=== PATIENT | female | born 1945 | race Caucasian/White ===

== ENCOUNTER 2021-04-12 10:30 | Outpatient (CLI) | payer MEDICARE, SELFPAY | END 2021-04-12 10:31 | disposition home or self-care (01) | LOC: CHSOUTPT 10:49 | PROVIDERS: PCP Family Medicine; Visit Provider Specialist | DX: C44.319 Basal cell carcinoma of skin of other parts of face (principal) | CPT/HCPCS: 88305 ==

== ENCOUNTER 2024-09-09 11:59 | Outpatient (CLI) | payer MEDICARE, SELFPAY ==
--- OUTSIDE RECORDS SUMMARY | 2024-09-09 12:26 | XMS_ITS ---
Author Organization Unknown Address [address] [place] [address] [phone] Phone Care Team Providers Care Glass Maker Name Role Phone BLAINE WETZEL Attending Unavailable GLORIA MCINTOSH Primary Unavailable Immunization Immunization Date Status Additional Notes Code Code System pneumococcal polysaccharide PPV23 02/13/2018 Completed 33 CVX Pneumococcal conjugate PCV 13 01/26/2016 Completed 133 CVX Influenza, high-dose, trivalent, PF 02/09/2015 Completed 135 CVX Influenza, high-dose, trivalent, PF 01/26/2016 Completed 135 CVX Influenza, high-dose, trivalent, PF 02/08/2017 Completed 135 CVX Influenza, high-dose, trivalent, PF 02/13/2018 Completed 135 CVX Influenza, high-dose, trivalent, PF 02/18/2019 Completed 135 CVX Influenza, high-dose, trivalent, PF 03/01/2024 Completed 135 CVX Influenza, split virus, trivalent, preservative 01/05/2014 Completed 141 CVX zoster recombinant 05/16/2018 Completed 187 CVX Influenza, high-dose, quadrivalent, PF 02/21/2020 Completed 197 CVX Influenza, high-dose, quadrivalent, PF 03/21/2021 Completed 197 CVX Influenza, high-dose, quadrivalent, PF 02/19/2022 Completed 197 CVX Influenza, high-dose, quadrivalent, PF 02/13/2023 Completed 197 CVX COVID-19, mRNA, LNP-S, PF, 1 00 mcg/0.5mL dose or 50 mcg/0.25mL dose 07/30/2020 Completed 207 CVX COVID-19, mRNA, LNP-S, PF, 1 00 mcg/0.5mL dose or 50 mcg/0.25mL dose 10/01/2020 Completed 207 CVX Results US KIDNEY AND BLADDER - Comp leted: 05/29/2024 13:15 LOINC: \TM00\12PI\DRAo\BM09\ \MRLo\ [facility] [address] [place] [address] ---------NAME--------- NUMBER SEX AGE ADMIT DISC. XRAY# F/C TYPE CYNTHIA KRISTIAN GOMEZ [id number] F [id number] 05/29/24 05/29/24 [id number] MB3 O/P DATE OF : 1945 M/R# [id number] PH#: [phone] \MRx\ LOCATION: TRANSCRIBED: 05/29/24 13:23 [facility] K[facility] BLADDER [id number] COMPLETED:05/29/24 13:15 APC [id number] {REASON-US KID/BLADDR renal stone PHYSICIAN: BLAINE ALYSA R A D I O L O G Y R E P O R T RENAL ULTRASOUND CLINICAL HISTORY: REASON-US KID/BLADDR renal stone TECHNIQUE: Multiple ultrasound images of the kidneys and bladder were obtained. COMPARISON: None FINDINGS: The right kidney measures 9.4 cm in length. The left kidney measures 10.2 cm. There is a 2.4 x 2.3 cm calculus with acoustic shadowing in the left renal pelvis. There is no right renal nephrolithiasis. There is no hydronephrosis. There is a 0.9 cm right renal cyst. The bladder appears within normal limits with prevoid volume measuring 116 cc. The postvoid residual is 83 cc. IMPRESSION: 1. 2.4 cm calculus in the left renal pelvis. There is no evidence of hydronephrosis. HS:Y NESS INFORMATION ANALYST \ITLo\ \UNDo\ \UNDx\ \ITLx\ Reviewed and Electronically Signed by: Joseph Pascal MD Signed Date: 05/29/24 13:23 05/29/24.1325.APC.to GLORIA PENA via modem Social History Type Status Start Date End Date Code Code Syst em Smoking History Never smoker (Never Smoked) [id number] SNOMED CT Smoking History Unknown if ever smoked [address] Sex Female Medications Medication Start Date End Date Route Frequency Dose Code Code System Medication Instructions Home Meds PreserVision Areds Oral Capsule, Liquid Filled 01/02/2020 Unknown ORAL DIRECTED 1 unit(s) 958173 RxNorm TAKE 1 EACH ORAL DIRECTED Verapamil HCl 240MG Oral Tablet, Extended Release 01/02/2020 Unknown ORAL ONCE A DAY 240 MILLIGRAMS 039073 RxNorm TAKE 240 MILLIGRAMS ORAL ONCE A DAY hydroCHLOROthiaz ginny 25MG Oral Tablet 01/02/2020 Unknown ORAL ONCE A DAY 25 MILLIGRAMS 892632 RxNorm TAKE 25 MILLIGRAMS ORAL ONCE A DAY VITAMIN D3 01/02/2020 Unknown ORAL ONCE A DAY 1 TABLET RxNorm TAKE 1 TABLET ORAL ONCE A DAY Hospital Discharge Instructions Should you have any questions prior to discharge, please contact a member of your healthcare team. If you have left the hospital and have any questions, please contact your primary care physician. Reason For Referral No Data Found Allergies and Adverse Reactions Allergy Substance Reaction Severity Start Date Concern Status Co de Code System No Known Drug Allergies Active 610131873 SNOMED-CT Plan of Treatment Digital Tony Screen Bilateral (44496) Digital Tony Screen Bilateral (80298) US Kidney & Bladder (07182) 05/29/2024 Encounters Encounter Diagnosis Start Date Code Code Sys tem Kidney stone 05/29/2024 [id number] SNOMED-CT Personal Care Team Section Performer Name Performer Role Active Date Inactive Musa morales Tony Mott PCP - Primary care physician 2021-10-14 Imaging Narrative Notes [facility] 05/29/2024 13:[address] [address] ---------NAME--------- NUMBER SEX AGE ADMIT DISC. XRAY# F/C TYPE CYNTHIA GOMEZ [id number] F 79 05/29/24 05/29/24 [id number] MB3 O/P DATE OF : 1945 M/R# [id number] #: [id number] LOCATION: TRANSCRIBED: 05/29/24 13:23 US KIDNEY AND BLADDER [id number] COMPLETED:05/29/24 13:15 APC [id number] {REASON-US KID/BLADDR renal stone PHYSICIAN: BLAINE ALYSA RADIOLOGY REPORT RENAL ULTRASOUND CLINICAL HISTORY: REASON-US KID/BLADDR renal stone TECHNIQUE: Multiple ultrasound images of the kidneys and bladder were obtained. COMPARISON: None FINDINGS: The right kidney measures 9.4 cm in length. The left kidney measures 10.2 cm. There is a 2.4 x 2.3 cm calculus with acoustic shadowing in the left renal pelvis. There is no right renal nephrolithiasis. There is no hydronephrosis. There is a 0.9 cm right renal cyst. The bladder appears within normal limits with prevoid volume measuring 116 cc. The postvoid residual is 83 cc. IMPRESSION: 1. 2.4 cm calculus in the left renal pelvis. There is no evidence of hydronephrosis. HS:Y NESS INFORMATION ANALYST Reviewed and Electronically Signed by: Joseph Pascal MD Signed Date: 05/29/24 13:23 05/29/24.1325.APC.to GLORIA PENA via mode
--- OUTSIDE RECORDS SUMMARY | 2024-09-09 12:26 | XMS_ITS ---
Author Organization Unknown Address [address] [place] [phone] Phone Care Team Providers Care Scheduling Representative Name Role Phone YOSELIN WHITEHEAD Attending Unavailable GLORIA MCINTOSH Primary Unavailable Immunization [...] 50 mcg/0.25mL dose 10/01/2020 Completed 207 CVX Social History Type Status Start Date End Date Code Code Syst em Smoking History Never smoker (Never Smoked) 323964292 SNOMED CT Smoking History Unknown if ever smoked [address] Sex Female Medications Medication Start Date End Date Route Frequency Dose Code Code System Medication Instructions Home Meds PreserVision Areds Oral Capsule, Liquid Filled 01/02/2020 Unknown ORAL DIRECTED 1 unit(s) 222763 RxNorm TAKE 1 EACH ORAL DIRECTED Verapamil HCl 240MG Oral Tablet, Extended Release 01/02/2020 Unknown ORAL ONCE A DAY 240 MILLIGRAMS 994084 RxNorm TAKE 240 MILLIGRAMS ORAL ONCE A DAY hydroCHLOROthiaz ginny 25MG Oral Tablet 01/02/2020 Unknown ORAL ONCE A DAY 25 MILLIGRAMS 869792 RxNorm TAKE 25 MILLIGRAMS ORAL ONCE A [...] Code System No Known Drug Allergies Active 355477672 SNOMED-CT Plan of Treatment Digital Tony Screen Bilateral (60361) Digital Tony Screen Bilateral (95802) Kidney & Bladder (35325) 05/29/2024 Encounters Encounter Diagnosis Start Date Code Code Sys tem Frequency of micturition 07/17/2023 SNO MED-CT Personal Care Team Section Performer Name Performer Role Active Date Inactive Musa Kohler PCP - Primary care physician 2021-10-14
--- OUTSIDE RECORDS SUMMARY | 2024-09-09 12:26 | XMS_ITS | Clinical Summary ---
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
--- OUTSIDE RECORDS SUMMARY | 2024-09-09 12:26 | XMS_ITS ---
Author Organization Unknown Address [address] [place] [address] [phone] Phone Care Team Providers Care Mud Boss Name Role Phone FELIBERTO Mckeon Attending Unavailable GLORIA MCINTOSH Primary Unavailable Immunization [...] em Smoking History Never smoker (Never Smoked) 391990512 SNOMED CT Smoking History Unknown if ever smoked [address] Sex Female Medications Medication Start Date End Date Route Frequency Dose Code Code System Medication Instructions Home Meds PreserVision Areds Oral Capsule, Liquid Filled 01/02/2020 Unknown ORAL DIRECTED 1 unit(s) 553413 RxNorm TAKE 1 EACH ORAL DIRECTED Verapamil HCl 240MG Oral Tablet, Extended Release 01/02/2020 Unknown ORAL ONCE A DAY 240 MILLIGRAMS 187268 RxNorm TAKE 240 MILLIGRAMS ORAL ONCE A DAY hydroCHLOROthiaz ginny 25MG Oral Tablet 01/02/2020 Unknown ORAL ONCE A DAY 25 MILLIGRAMS 827250 RxNorm TAKE 25 MILLIGRAMS ORAL ONCE A [...] Code System No Known Drug Allergies Active 178404047 SNOMED-CT Plan of Treatment Digital Tony Screen Bilateral (21420) Digital Tony Screen Bilateral (00856) Kidney & Bladder (50477) 05/29/2024 Encounters Encounter Diagnosis Start Date Code Code Sys tem Dysuria 04/06/2024 SNOMED-CT Personal Care Team Section Performer Name Performer Role Active Date Inactive Musa Kohler PCP - Primary care physician 2021-10-14
--- OUTSIDE RECORDS SUMMARY | 2024-09-09 12:26 | XMS_ITS ---
Author Organization Unknown Address [address] [place] [address] [phone] Phone Care Team Providers Care Computer Programmer Analyst Name Role Phone BALBIR LYN Attending Unavailable GLORIA MCINTOSH Primary Unavailable Immunization [...] mcg/0.25mL dose 10/01/2020 Completed 207 CVX Results LIPID PANEL - Collect Date/T delores: 04/16/2024 08:44 [facility] ID: [id number] [place], [place], [id number] LOINC: 03083-8 Test Value Unit Reference Range Code Code System Flag FASTING YES CHOLESTEROL 278 mg/dL L=0 H=200 2092-3 LOINC H TRIGLYCERIDE 146 mg/dL L=0 H=150 2570-8 LOINC HDL 108 mg/dL L=40 H=60 2084-9 LOINC H LDL 113 mg/dL 2088-1 LOINC URINALYSIS w/Microscopy - Co llect Date/Time: 04/16/2024 08:44 [facility] ID: [id number] [place], [place], [phone] LOINC: 62568-4 Test Value Unit Reference Range Code Code System Flag UR SOURCE VOIDED 68360-1 LOINC COLOR YELLOW YELLOW 5778-6 LOINC CLARITY CLOUDY CLEAR 42206-3 LOINC SPEC GRAVITY >=1.030 1.000-1.030 5811-5 LOINC A PH 6.0 5.0 - 6.5 5803-2 LOINC LEUK EST 1+ NEGATIVE 5799-2 LOINC A NITRATE NEGATIVE NEGATIVE PROTEIN 2+ NEGATIVE 5804-0 LOINC A GLUCOSE NEGATIVE NEGATIVE 22831-6 LOINC KETONES NEGATIVE NEGATIVE 65231-6 LOINC UROBILINOGEN 0.2 0.2 - 1.0 5818-0 LOINC BILIRUBIN NEGATIVE NEGATIVE 50070-1 LOINC BLOOD 3+ NEGATIVE 91438-7 LOINC WBC 10-20 0 - 2 47031-8 LOINC A RBC 10-20 0 - 2 24138-9 LOINC A EPITHELIAL RARE RARE-FEW 01957-9 LOINC BACTERIA FEW NONE SEEN 53697-3 LOINC MUCUS NONE SEEN NONE SEEN 8247-9 LOINC YEAST NOT PRESE NOT PRESENT 90068-5 LOINC CASTS NONE SEEN 80499-6 LOINC CRYSTALS SEE BELOW 50102-6 LOINC TSH / REFLEX FT4 - Collect D ate/Time: 04/16/2024 08:44 [facility] ID: [id number] [address] [place], [place], [id number] LOINC: Test Value Unit Reference Range Code Code System Flag TSH 3.560 uIU/L L=0.470 H=4.680 74464-0 LOINC CBC W/ DIFF - Collect Date/T delores: 04/16/2024 08:44 [facility] ID: [id number] [address] [place], [place], [id number] LOINC: 57422-3 Test Value Unit Reference Range Code Code System Flag WBC 4.8 10^3uL L=4.8 H=10.8 RBC 4.84 10^6uL L=4.20 H=5.40 HEMOGLOBIN 14.8 g/dL L=12.0 H=16.0 718-7 LOINC HEMATOCRIT 45.9 VOL% L=37.0 H=47.0 4544-3 LOINC MCV 94.8 fL L=81.0 H=99.0 MCH 30.6 pg L=27.0 H=32.0 MCHC 32.2 g/dL L=32.0 H=36.0 PLATELETS 282 10^3uL L=100 H=400 12336-4 LOINC RDW 13.0 % L=11.7 H=15.5 %GRAN 54.4 % L=40.0 H=70.0 82617-1 LOINC %LYMPH 33.5 % L=20.0 H=45.0 736-9 LOINC %MONO 8.8 % L=2.0 H=10.0 59561-9 LOINC %EOS 2.9 % L=0.0 H=6.0 713-8 LOINC %BASO 0.4 % L=0.0 H=3.0 706-2 LOINC #NEUT 2.6 10^3uL L=1.9 H=7.6 97031-6 LOINC #LYMPH 1.6 10^3uL L=0.9 H=4.9 49355-2 LOINC #MONO 0.4 10^3uL L=0.1 H=0.9 27924-9 LOINC #EOS 0.1 10^3uL L=0.0 H=0.6 712-0 LOINC #BASO 0.02 10^3uL L=0.00 H=0.10 47076-7 LOINC #IM GRANS 0.0 10^3uL L=0.0 H=7.0 40330-9 LOINC %IM GRANS 0.0 % L=0.0 H=5.0 16163-6 LOINC %NRB 0.0 L=0.0 H=0.2 62986-7 LOINC #NRB 0.000 L=0.000 H=0.012 63339-1 LOINC MANUAL DIFF NOT INDICATED RBC MORPH NOT INDICATED COMPREHENSIVE METABOLIC PANE L - Collect Date/Time: 04/16/2024 08:44 [facility] ID: [id number] [address] [place], [place], [id number] LOINC: 10541-3 Test Value Unit Reference Range Code Code System Flag FASTING YES BUN 25 mg/dL L=7 H=20 3094-0 LOINC H CREATININE 0.80 mg/dL L=0.52 H=1.04 2160-0 LOINC GLUCOSE 80 mg/dL L=74 H=106 2345-7 LOINC SODIUM 141 mmol/L L=132 H=144 2951-2 LOINC POTASSIUM 4.2 mmol/L L=3.5 H=5.1 2823-3 LOINC CHLORIDE 102 mmol/L L=98 H=107 2075-0 LOINC CO2 31.0 mmol/L L=22.0 H=30.0 2028-9 LOINC H ANION GAP 12 L=10 H=20 55330-8 LOINC OSMOLALITY 295 mOs/kG L=280 H=296 66836-6 LOINC BUN/CREAT 31.3 3097-3 LOINC CALCIUM 9.7 mg/dL L=8.3 H=10.5 23525-9 LOINC AST 24 U/L L=15 H=46 1920-8 LOINC ALT 15 U/L L=9 H=72 1742-6 LOINC ALKALINE PHOS 100 U/L L=38 H=126 6768-6 LOINC TOTAL BILI 0.5 mg/dL L=0.2 H=1.3 1975-2 LOINC ALBUMIN 4.4 G/dL L=3.5 H=5.0 1751-7 LOINC TOTAL PROTEIN 6.8 g/L L=6.3 H=8.2 2885-2 LOINC A/G RATIO 1.8 46554-1 LOINC AGE 79 92020-4 LOINC eGFR NON-AFR 74 ml/min eGFR AFR AMER 90 ml/min Social History Type Status Start Date End Date Code Code Syst em Smoking History Never smoker (Never Smoked) 452291547 SNOMED CT Smoking History Unknown if ever smoked [address] Sex Female Medications Medication Start Date End Date Route Frequency Dose Code Code System Medication Instructions Home Meds PreserVision Areds Oral Capsule, Liquid Filled 01/02/2020 Unknown ORAL DIRECTED 1 unit(s) 532025 RxNorm TAKE 1 EACH ORAL DIRECTED Verapamil HCl 240MG Oral Tablet, Extended Release 01/02/2020 Unknown ORAL ONCE A DAY 240 MILLIGRAMS 294271 RxNorm TAKE 240 MILLIGRAMS ORAL ONCE A DAY hydroCHLOROthiaz ginny 25MG Oral Tablet 01/02/2020 Unknown ORAL ONCE A DAY 25 MILLIGRAMS 843397 RxNorm TAKE 25 MILLIGRAMS ORAL ONCE A [...] Code System No Known Drug Allergies Active 540439437 SNOMED-CT Plan of Treatment Digital Tony Screen Bilateral (84127) Digital Tony Screen Bilateral (39678) Kidney & Bladder (69362) 05/29/2024 Encounters Encounter Diagnosis Start Date Code Code Sys tem Mixed hyperlipidemia 04/16/2024 SNOMED- CT Personal Care Team Section Performer Name Performer Role Active Date Inactive Musa Kohler PCP - Primary care physician 2021-10-14
--- OUTSIDE RECORDS SUMMARY | 2024-09-09 12:26 | XMS_ITS ---
Author Organization Unknown Address [address] [place] [phone] Phone Care Team Providers Care Distribution Sales Representative Name Role Phone BLAINE WETZEL Attending Unavailable [...] em Smoking History Never smoker (Never Smoked) 363505701 SNOMED CT Smoking History Unknown if ever smoked [address] Sex Female Medications Medication Start Date End Date Route Frequency Dose Code Code System Medication Instructions Home Meds PreserVision Areds Oral Capsule, Liquid Filled 01/02/2020 Unknown ORAL DIRECTED 1 unit(s) 763851 RxNorm TAKE 1 EACH ORAL DIRECTED Verapamil HCl 240MG Oral Tablet, Extended Release 01/02/2020 Unknown ORAL ONCE A DAY 240 MILLIGRAMS 644053 RxNorm TAKE 240 MILLIGRAMS ORAL ONCE A DAY hydroCHLOROthiaz ginny 25MG Oral Tablet 01/02/2020 Unknown ORAL ONCE A DAY 25 MILLIGRAMS 460115 RxNorm TAKE 25 MILLIGRAMS ORAL ONCE A [...] Code System No Known Drug Allergies Active 987523666 SNOMED-CT Plan of Treatment Digital Tony Screen Bilateral (53423) Digital Tony Screen Bilateral (03228) Kidney & Bladder (46566) 05/29/2024 Encounters Encounter Diagnosis Start Date Code Code Sys tem Dysuria 04/18/2024 SNOMED-CT Personal Care Team Section Performer Name Performer Role Active Date Inactive Musa Kohler PCP - Primary care physician 2021-10-14
--- OUTSIDE RECORDS SUMMARY | 2024-09-09 12:26 | XMS_ITS | Clinical Summary ---
Author Organization [facility] Address [address] [place] [id number] Care Team Providers Care Fuel Buyer Name Role Phone Scott English MD Primary Care Provider [phone] Allergies No known active allergies Medications verapamil 240 MG ER tabletIndicatio ns:Hypertension Take 240 mg by mouth daily. Indications: High Blood Pressure Disorder Active hydroCHLOROthia zide 25 MG tabletIndicatio ns:Diuretic Therapy,Hyperte nsion,after lunch Take 25 mg by mouth every morning. Indications: Treatment with Diuretic Therapy, High Blood Pressure Disorder, after lunch Active vitamin D3, cholecalciferol , 1000 UNIT Tab tabletIndicatio ns:supplement Take 1,000 Units by mouth daily. Indications: supplement Active ibuprofen 200 MG tablet Take 400 mg by mouth every 6 (six) hours as needed for Pain. Active Multiple Vitamins-Minera ls (PRESERVISION AREDS 2 OR)Indications: supplement Take 1 capsule by mouth 2 (two) times a day. Indications: supplement Active phentermine 37.5 MG tabletIndicatio ns:aware cannot have for 2 weeks before surgery Take 37.5 mg by mouth daily. Indications: aware cannot have for 2 weeks before surgery Weight loss;last dose 02/2020 0 Active Active Problems No known active problems Family History Medical History Relation Comments [place] Father Aneurysm Mother Relation Status Comments Father Mother Social History Tobacco Use Types Packs/Day Years Used Date Smoking Tobacco: Former Cigarettes 1 962 - 1962 Smokeless Tobacco: Never Comments:smoked less than 1 year Alcohol Use Standard Drinks/Week Comments Yes 0 (1 standard drink = 0.6 oz pur e alcohol) socially Comments Unknown Sex and Gender Information Value Date Recorded Sex Assigned at Not on file Legal Sex Female 10:08 PM MANAGER LIGHTING Gender Identity Not on file Sexual Orientation Not on file Last Filed Vital Signs Vital Sign Reading Time Taken Comments Blood Pressure 129/70 05/03/2020 1:15 PM MANAGER LIGHTING Pulse 53 05/03/2020 1:00 PM MANAGER LIGHTING Temperature 36.2 C (97.1 F) 05/03/2020 11:44 AM MANAGER LIGHTING Respiratory Rate 16 05/03/2020 1:15 PM MANAGER LIGHTING Oxygen Saturation 94% 05/03/2020 1:00 PM MANAGER LIGHTING Inhaled Oxygen Concentration - - Weight 87.5 kg (193 lb) 04/23/2020 9:31 AM MANAGER LIGHTING Height 170.2 cm (5' 7 ) 04/23/2020 9:31 AM MANAGER LIGHTING Body Mass Index 30.23 04/23/2020 9:31 AM MANAGER LIGHTING Plan of Treatment Health Maintenance Due Date Last Done Comments Hepatitis C 1963 DTaP, Tdap and Td Vaccines ( 1 - Tdap) 02/11/1964 Annual Medicare Wellness Visit 2010 Dexa Scan (General) 2010 Pneumococcal Vaccine: 50+ Ye ars (2 of 2 - PPSV23) 01/25/2017 01/26/2016 Zoster Vaccines (2 of 2) 07/11/2018 05/16/2018 RSV Immunization or 60+ Years (1 - 1-dose 75+ series) 02/11/2020 COVID-19 Vaccine ( - 2023-2 5 season) 2024 Meningococcal B Vaccine Aged Out No l onger eligible based on patient's age to complete this topic Meningococcal Vaccine Aged Out No kaleigh akil eligible based on patient's age to complete this topic RSV Immunizations Under 20 Months Aged Out No longer eligible based on patient's age to complete this topic Medical Devices Implanted Type Area Typewriter Operator Automatic Device Identifier Shelf Expiration Date Model / Serial / Lot [employer] Soft [employer] 1.45 Short Rigid W/ Drill Bit [employer] - [id number] Implanted:Qty: 1 on 05/03/2020 by Jules Mcintyre DPM at [facility] [employer] Right: [employer] [id number] 11/24/2023 [id number] / / [id number] Knee Components Knee Components Description:Left knee Lens Lens Description:Bilateral eyes Insurance [employer] [facility] Advance Directives * Full Code (Latest Code Status on File) Date Activated Date Inactivated Comments 05/03/2020 11:56 AM 05/03/2020 3:16 PM Care Teams Fuel Buyer Relationship Specialty Start Date End Date Scott English MD PCP - General FAMILY PRACTICE 05/20/19
--- OUTSIDE RECORDS SUMMARY | 2024-09-09 12:27 | XMS_ITS ---
Author Organization Unknown Address [address] [place] [phone] Phone Care Team Providers Care Slurry Plant Operator Name Role Phone GLORIA MCINTOSH Attending Unavailable Immunization Immunization Date Status Additional Notes [...] mcg/0.25mL dose 10/01/2020 Completed 207 CVX Results DIG 3D TONY SCREENING BILATER AL - Completed: 11/29/2023 16:26 LOINC: See Scanned Image Attachment for Report Dictated By: Trans Initials: BG Trans Date: 11/30/23 15:23 <<REPDIST>> Social History Type Status Start Date End Date Code Code Syst em Smoking History Never smoker (Never Smoked) 893608671 SNOMED CT Smoking History Unknown if ever smoked [address] Sex Female Medications Medication Start Date End Date Route Frequency Dose Code Code System Medication Instructions Home Meds PreserVision Areds Oral Capsule, Liquid Filled 01/02/2020 Unknown ORAL DIRECTED 1 unit(s) 997098 RxNorm TAKE 1 EACH ORAL DIRECTED Verapamil HCl 240MG Oral Tablet, Extended Release 01/02/2020 Unknown ORAL ONCE A DAY 240 MILLIGRAMS 686564 RxNorm TAKE 240 MILLIGRAMS ORAL ONCE A DAY hydroCHLOROthiaz ginny 25MG Oral Tablet 01/02/2020 Unknown ORAL ONCE A DAY 25 MILLIGRAMS 605274 RxNorm TAKE 25 MILLIGRAMS ORAL ONCE A [...] Code System No Known Drug Allergies Active 652657541 SNOMED-CT Plan of Treatment Digital Tony Screen Bilateral (29577) Digital Tony Screen Bilateral (66091) Kidney & Bladder (42337) 05/29/2024 Encounters Encounter Diagnosis Start Date Code Code Sys tem Screening mammography 11/29/2023 79504456 SNOMED -CT Personal Care Team Section Performer Name Performer Role Active Date Inactive Musa Kohler PCP - Primary care physician 2021-10-14 Imaging Narrative Notes [facility] 11/30/2023 15:23 [place] [phone] [place], [place] [address] RADIOLOGY REPORT Patient Number: [id number] Patient Name: CYNTHIA GOMEZ Type: O/P MR Number: [id number] : 1945 Age: 78 Sex: F Room #: Admit Date: 11/29/23 Discharge Date 11/29/23 Ordering Physician: GLORIA MCINTOSH Family Physician: GLORIA PENA Second Physician: X-Ray Number : [id number] DIG 3D TONY SCREENING BILATERA 81598 COMPLETE:11/29/23 16:26 [id number] (REASONS-DIG 3D TONY SCREENING BILATERAL: R See Scanned Image Attachment for Report Dictated By: Darrin Initials: Trans Date: 11/30/23 15:23 <<REPDIST>>
--- OUTSIDE RECORDS SUMMARY | 2024-09-09 12:27 | XMS_ITS ---
Author Organization Unknown Address [address] [place] [address] [phone] Phone Care Team Providers Care Volunteer Specialist Name Role Phone BALBIR LYN Attending Unavailable [...] mcg/0.25mL dose 10/01/2020 Completed 207 CVX Results COMPREHENSIVE METABOLIC PANE L - Collect Date/Time: 10/18/2023 08:13 [facility] ID: [id number] [address] [place], [place], [id number] LOINC: 45400-7 Test Value Unit Reference Range Code Code System Flag FASTING YES BUN 24 mg/dL L=7 H=20 3094-0 LOINC H CREATININE 0.70 mg/dL L=0.52 H=1.04 2160-0 LOINC GLUCOSE 81 mg/dL L=74 H=106 2345-7 LOINC SODIUM 140 mmol/L L=132 H=144 2951-2 LOINC POTASSIUM 3.5 mmol/L L=3.5 H=5.1 2823-3 LOINC CHLORIDE 104 mmol/L L=98 H=107 2075-0 LOINC CO2 34.0 mmol/L L=22.0 H=30.0 2028-9 LOINC H ANION GAP 6 L=10 H=20 08443-0 LOINC L OSMOLALITY 293 mOs/kG L=280 H=296 08442-8 LOINC BUN/CREAT 34.3 3097-3 LOINC CALCIUM 9.4 mg/dL L=8.3 H=10.5 05195-8 LOINC AST 25 U/L L=15 H=46 1920-8 LOINC ALT 13 U/L L=9 H=72 1742-6 LOINC ALKALINE PHOS 98 U/L L=38 H=126 6768-6 LOINC TOTAL BILI 0.6 mg/dL L=0.2 H=1.3 1975-2 LOINC ALBUMIN 4.0 G/dL L=3.5 H=5.0 1751-7 LOINC TOTAL PROTEIN 6.7 g/L L=6.3 H=8.2 2885-2 LOINC A/G RATIO 1.5 72433-6 LOINC AGE 78 25088-9 LOINC eGFR NON-AFR 86 ml/min eGFR AFR AMER 104 ml/min TSH / REFLEX FT4 - Collect D ate/Time: 10/18/2023 08:13 [facility] ID: [id number] [place], [place], [id number] LOINC: Test Value Unit Reference Range Code Code System Flag TSH 3.100 uIU/L L=0.470 H=4.680 66652-3 LOINC LIPID PANEL - Collect Date/T delores: 10/18/2023 08:13 [facility] ID: [id number] [place], [place], [id number] LOINC: 27855-1 Test Value Unit Reference Range Code Code System Flag FASTING YES CHOLESTEROL 272 mg/dL L=0 H=200 2092-3 LOINC H TRIGLYCERIDE 91 mg/dL L=0 H=150 2570-8 LOINC HDL 108 mg/dL L=40 H=60 2084-9 LOINC H LDL 126 mg/dL 2088- LOINC URINALYSIS w/Microscopy - Co llect Date/Time: 10/18/2023 08:13 [facility] ID: [id number] [place], [id number] LOINC: 77800-3 Test Value Unit Reference Range Code Code System Flag UR SOURCE CLEAN CATCH 12439-9 LOINC COLOR YELLOW YELLOW 5778-6 LOINC CLARITY SL CLOUDY CLEAR 66985-6 LOINC SPEC GRAVITY 1.020 1.000-1.030 5811-5 LOINC PH 6.5 5.0 - 6.5 5803-2 LOINC LEUK EST TRACE NEGATIVE 5799-2 LOINC A NITRATE NEGATIVE NEGATIVE PROTEIN 2+ NEGATIVE 5804-0 LOINC A GLUCOSE NEGATIVE NEGATIVE 14067-6 LOINC KETONES TRACE NEGATIVE 57867-3 LOINC A UROBILINOGEN 1.0 NEGATIVE 5818-0 LOINC BILIRUBIN NEGATIVE NEGATIVE 42305-1 LOINC BLOOD 2+ NEGATIVE 18167-4 LOINC WBC 2-5 0 - 2 30845-7 LOINC RBC 5-10 0 - 2 39686-3 LOINC A EPITHELIAL OCCASIONA RARE-FEW 74819-6 LOINC BACTERIA FEW NONE SEEN 65021-2 LOINC MUCUS 1+ NONE SEEN 8247-9 LOINC YEAST NOT PRESENT NOT PRESENT 20721-9 LOINC CASTS NONE SEEN 05086-6 LOINC CRYSTALS SEE BELOW 71180-8 LOINC CBC W/ DIFF - Collect Date/T delores: 10/18/2023 08:13 [facility] ID: [id number] [place], [place], [id number] LOINC: 50579-3 Test Value Unit Reference Range Code Code System Flag WBC 4.2 10^3uL L=4.8 H=10.8 L RBC 4.74 10^6uL L=4.20 H=5.40 HEMOGLOBIN 14.5 g/dL L=12.0 H=16.0 718-7 LOINC HEMATOCRIT 43.8 VOL% L=37.0 H=47.0 4544-3 LOINC MCV 92.4 fL L=81.0 H=99.0 MCH 30.6 pg L=27.0 H=32.0 MCHC 33.1 g/dL L=32.0 H=36.0 PLATELETS 245 10^3uL L=100 H=400 61664-1 LOINC RDW 12.7 % L=11.7 H=15.5 %GRAN 49.2 % L=40.0 H=70.0 90462-9 LOINC %LYMPH 33.7 % L=20.0 H=45.0 736-9 LOINC %MONO 12.5 % L=2.0 H=10.0 55534-4 LOINC H %EOS 3.9 % L=0.0 H=6.0 713-8 LOINC %BASO 0.5 % L=0.0 H=3.0 706-2 LOINC #NEUT 2.0 10^3uL L=1.9 H=7.6 43269-7 LOINC #LYMPH 1.4 10^3uL L=0.9 H=4.9 35255-6 LOINC #MONO 0.5 10^3uL L=0.1 H=0.9 41124-1 LOINC #EOS 0.2 10^3uL L=0.0 H=0.6 712-0 LOINC #BASO 0.02 10^3uL L=0.00 H=0.10 16478-1 LOINC #IM GRANS 0.0 10^3uL L=0.0 H=7.0 21554-3 LOINC %IM GRANS 0.2 % L=0.0 H=5.0 57397-5 LOINC %NRB 0.0 L=0.0 H=0.2 54275-6 LOINC #NRB 0.000 L=0.000 H=0.012 20282-2 LOINC MANUAL DIFF NOT INDICATED RBC MORPH NOT INDICATED Social History Type Status Start Date End Date Code Code Syst em Smoking History Never smoker (Never Smoked) 758657825 SNOMED CT Smoking History Unknown if ever smoked [address] Sex Female Medications Medication Start Date End Date Route Frequency Dose Code Code System Medication Instructions Home Meds PreserVision Areds Oral Capsule, Liquid Filled 01/02/2020 Unknown ORAL DIRECTED 1 unit(s) 122643 RxNorm TAKE 1 EACH ORAL DIRECTED Verapamil HCl 240MG Oral Tablet, Extended Release 01/02/2020 Unknown ORAL ONCE A DAY 240 MILLIGRAMS 719574 RxNorm TAKE 240 MILLIGRAMS ORAL ONCE A DAY hydroCHLOROthiaz ginny 25MG Oral Tablet 01/02/2020 Unknown ORAL ONCE A DAY 25 MILLIGRAMS 370086 RxNorm TAKE 25 MILLIGRAMS ORAL ONCE A [...] Code System No Known Drug Allergies Active 585567536 SNOMED-CT Plan of Treatment Digital Tony Screen Bilateral (78723) Digital Tony Screen Bilateral (18380) Kidney & Bladder (12437) 05/29/2024 Encounters Encounter Diagnosis Start Date Code Code Sys tem Essential (primary) hypertension 10/18/2023 SNOMED-CT Personal Care Team Section Performer Name Performer Role Active Date Inactive Musa Kohler PCP - Primary care physician 2021-10-14
--- OUTSIDE RECORDS SUMMARY | 2024-09-09 12:27 | XMS_ITS | Continuity of Care Document ---
Author Organization [facility] Address [address] [facility] ryley Chan [address] [place] [phone] Phone Care Team Providers Care Civil Structural Designer Name Role Phone Conrad Landaverde MD, FACS Unavailable Unavailab le Allergies, Adverse Reactions, Alerts Substance Reaction Status Criticality No Known Allergies Active No Inform ation Medications Medication Instructions Dosage Effective Dates (start - stop) Status Comments Stool Softener 100 mg capsule take 1 capsule by oral route every day at bedtime as needed 100 MG - Active hydrochlorothiazide 25 mg tablet - Active verapamil ER (SR) 240 mg tablet,extended release - Active Garcinia Cambogia 200 mcg-500 mg tablet - Active ibuprofen 200 mg tablet take 1 tablet by oral route every 6 hours as needed with food 200 MG - Active Vitamin D3 1,000 unit capsule - Active prednisolone acetate 1 % eye drops,suspension Instill 1 drop into Operated Eye QID x 2 weeks then BID x 2 weeks - No Longer Active Procedures Procedure Date Remove Cataract, Insert Lens IOLMaster-Professional Remove Cataract, Insert Lens IOLMaster-Professional No Charge Refraction No Charge Optomap Fundus Photos 017 IOLMaster-Technical No Charge Orbscan Eye Exam, New Patient Advance Directives Directive Yes / No Effective Date File Name No Information Encounters Encounter Description Practice Location Reason(s) For Visit Diagnoses Date Provider Providers Copied on Encounter [facility], [address], [place], [place], [address], [place] tel:[phone] [facility] No Information 7 Saima Conrad. [address], [address], [place], [place], [address], [place]. tel:[phone] [facility], [address], [place], [place], [address], [place] tel:[phone] [facility] [place] [facility] No Information 7 Saima Conrad. [address], [address], [place], [place], [address], [place]. tel:[phone] [facility], [address], [place], [place], [address], [place] tel:[phone] [facility] No Information 7 Saima Conrad. [address], [address], [place], [place], [address], [place]. tel:[phone] [facility], [address], [place], [place], [address], [place] tel:[phone] [facility] [place] No Information 7 Saima Conrad. [address] [place] [address], [address], [place], [place], [address], [place]. tel:[phone] [facility], [address], [place], [place], [address], [place] tel:[phone] [facility] [place] No Information 7 Saima Conrad. [address] [place] [address], [address], [place], [place], [address], [place]. tel:[phone] [facility], [address], [place], [place], [address], [place] tel:[phone] [facility] [place] [facility] Cataract evaluation (chief complaint) Combined forms of age-related cataract, bilateral Saima Martines. [address], [address], [place], [place], [address], [place]. tel:[phone] [facility], [address], [place], [place], [address], [place] tel:[phone] [facility] [place] Professional No Information Billie Duarte. [address] [place], [address], [place]. tel:[phone] Family History Family Member Type Diagnosis Age At Onset Brother Problem (finding) Diabetes mellitus Problem (finding) Family history of Diabe raegan mellitus Payers Payer name Insurance type Covered republican ID Authoriza tion(s) Medicare [facility] [id number] [facility] [place] [id number] Social History Type Description Quantity Date Captured Comments Sex Female Smoking Status No Information Chief Complaint And Reason For Visit No Information Reason For Referral Reason For Referral No Information History Of Present Illness Encounter Date Complaint History Of Prese nt Illness Cataract evaluation The 71 year old female presents for Cataract evaluation in the right eye and left eye. Hx of Cataracts OU, Allergic conjuntivitis, and Punctate Epitheleal Keratits. Pt states difficult to drive at night due to headlight glare, having to get closer to street signs to see them clearly, and difficult to see small print. DVa and N[facility] OU gradual decrease x yrs. Pt has [facility] cls OD DV and OS NV. Pt sleeps in her cls. Pt's Circuit Board Inspector has been having a hard time fitting pt with cls that are comfortable and has suggested pt get evaluated for implants. Pt has been having itching and red eyes and has been using [place] OU prn. Pt woke up in the middle of the night last Sat with pain OD, she took out her cls and the eye felt much better the next day. Functional Status Date Functional Assessmen t No Information Instructions Date Instruction Additional Infor arie Follow up - sched CE OD 1st distance then CE OS near Impression/Plan - Ca taract presence is the cause of the patients visual complaints and progression without treatment discussed. Discussed all risks, benefits, procedures and recovery. Vision will not significantly improve with a change in glasses and we recommend not changing. The patient understands this is an elective procedure and may proceed when desired. The patients questions were answered and demonstrates understanding of our discussion. Patient desires to have surgery, recommend phacoemulsification with intraocular lens. Standard monofocal IOL understood and the need for specs for at least near vision following surgery is understood. Explained the accuracy and effectiveness of any lens implant cannot be guaranteed. h/o Monovision CTL wear. OD distance OS near. Will need confirmation from Dr. Phillips. Will send a copy of today's visit to Dr. Phillips Combined forms of ag e-related cataract, bilateral - Surgery advised; risks, benefits, alternatives discussed. Related to Combined forms of age-related cataract, bilateral Assessments Type Assessment Date No Information Patient Care Teams Name Effective Dates (start - stop) Status Members No Information
--- OUTSIDE RECORDS SUMMARY | 2024-09-09 12:27 | XMS_ITS | Encounter Summary ---
Author Organization [facility] Address [address] [place] [address] Care Team Providers Care Certified Flight Instructor Name Role Phone Unavailable Primary Care Provider Unavailabl e Encounter Details Date Type Department Care Team (Late st Contact Info) Description 07/29/2002 Outpatient Historical [facility] Internal Medicine [address] [place] [address] Damian Han MD [address] [place] [address] Social History Tobacco Use Types Packs/Day Years Used Date Smoking Tobacco: Never Assessed Comments Unknown Sex and Gender Information Value Date Recorded Sex Assigned at Not on file Legal Sex Female 4:06 AM [employer]FU[employer] Gender Identity Not on file Sexual Orientation Not on file documented as of this encounter Plan of Treatment Not on file documented as of this encounter Visit Diagnoses Not on filedocumented in this encounter
--- OUTSIDE RECORDS SUMMARY | 2024-09-09 12:27 | XMS_ITS ---
Author Organization Unknown Address [address] [place] [phone] Phone Care Team Providers Care Managing Manager Name Role Phone RAMÍREZ EVANS Attending Unavailable GLORIA MCINTOSH Primary Unavailable Immunization [...] mcg/0.25mL dose 10/01/2020 Completed 207 CVX Results URINALYSIS w/Microscopy/C&S if indicated - Collect Date/Time: 01/12/2024 16:17 [facility] ID: [id number] [address] [place], [place], [address] LOINC: 56456-4 Test Value Unit Reference Range Code Code System Flag UR SOURCE CLEAN CATCH 27560-7 LOINC COLOR YELLOW YELLOW 5778-6 LOINC CLARITY CLOUDY CLEAR 00732-3 LOINC SPEC GRAVITY >=1.030 1.000-1.030 5811-5 LOINC A PH 6.0 5.0 - 6.5 5803-2 LOINC LEUK EST NEGATIVE NEGATIVE 5799-2 LOINC NITRATE NEGATIVE NEGATIVE PROTEIN 1+ NEGATIVE 5804-0 LOINC A GLUCOSE NEGATIVE NEGATIVE 93531-9 LOINC KETONES NEGATIVE NEGATIVE 26427-1 LOINC UROBILINOGEN 1.0 NEGATIVE 5818-0 LOINC BILIRUBIN NEGATIVE NEGATIVE 98093-2 LOINC BLOOD 1+ NEGATIVE 86278-7 LOINC WBC 5-10 0 - 2 72155-4 LOINC A RBC 0-2 0 - 2 54893-0 LOINC EPITHELIAL OCCASIONA RARE-FEW 44861-6 LOINC BACTERIA FEW NONE SEEN 63901-4 LOINC MUCUS 1+ NONE SEEN 8247-9 LOINC YEAST NOT PRESENT NOT PRESENT 23880-9 LOINC CASTS NONE SEEN 80364-0 LOINC CRYSTALS SEE BELOW 62241-1 LOINC CULTURE? NO 8251-1 LOINC DIAGNOSIS N/A LUMBAR SPINE - Completed: 15:35 LOINC: EXAM DESCRIPTION: THORACIC SPINE 2V; LUMBAR SPINE REASON FOR STUDY: Acute nontraumatic back pain with microhematuria for 3 days. TECHNIQUE: 3 radiographic views acquired of the thoracic spine; 3 radiographic views acquired of the lumbar spine. COMPARISON: DEXA scan 10/14/2021: Reported as osteoporosis; relevant portions of two-view chest radiograph 09/01/2021; relevant portions of cervical spine radiograph 02/15/2021. FINDINGS: THORACIC SPINE: ALIGNMENT: Alignment and curvature unchanged. VERTEBRAE: Diffuse demineralization of the osseous architecture. No radiographic evidence of acute fracture. Vertebral body heights unchanged. Spondylosis. DISCS: Multilevel variable loss of intervertebral disc height. SOFT TISSUES: Calcific atherosclerosis of the aorta and branch vasculature. OTHER: Redemonstration of constellation of spondylolisthesis with straightening of the cervical lordosis, spondylosis, and degenerative disc disease of the cervical spine. LUMBAR SPINE: SEGMENTATION: No lumbosacral transitional anatomy. The lowest fully formed intervertebral disc level is labeled L5-S1. ALIGNMENT: Mild levocurvature of the lumbar spine; variable minimal to mild stair step retrolisthesis T11 on T12 through L1 on L2; minimal retrolisthesis L3 on L4 in advance of grade 1 anterolisthesis L4 on L5. VERTEBRAE: Diffuse demineralization of the osseous architecture. No radiographic evidence of acute fracture. Vertebral body heights maintained. Spondylosis. DISCS: Multilevel variable vacuum disc phenomenon loss of intervertebral disc height of the lower thoracic through lumbar spine. SOFT TISSUES: Calcific atherosclerosis of the aorta and branch vasculature. Nonspecific calcification left hemiabdomen. Surgical clips about the lower abdomen to pelvis. IMPRESSION: No radiographic evidence of acute fracture of the thoracic or lumbar spine with constellation of spondylolisthesis, spondylosis, and degenerative disc disease. THIS IS AN ELECTRONICALLY VERIFIED FINAL REPORT 01/12/2024 4:05 PM - Electronically signed by Kirill Martinez M.D. EDITH: EDITH Report ID: [id number] Reading Location: [place] [address] THORACIC SPINE 2V - Complete d: 01/12/2024 15:35 LOINC: EXAM DESCRIPTION: THORACIC SPINE 2V; LUMBAR SPINE REASON FOR STUDY: Acute nontraumatic back pain with microhematuria for 3 days. TECHNIQUE: 3 radiographic views acquired of the thoracic spine; 3 radiographic views acquired of the lumbar spine. COMPARISON: DEXA scan 10/14/2021: Reported as osteoporosis; relevant portions of two-view chest radiograph 09/01/2021; relevant portions of cervical spine radiograph 02/15/2021. FINDINGS: THORACIC SPINE: ALIGNMENT: Alignment and curvature unchanged. VERTEBRAE: Diffuse demineralization of the osseous architecture. No radiographic evidence of acute fracture. Vertebral body heights unchanged. Spondylosis. DISCS: Multilevel variable loss of intervertebral disc height. SOFT TISSUES: Calcific atherosclerosis of the aorta and branch vasculature. OTHER: Redemonstration of constellation of spondylolisthesis with straightening of the cervical lordosis, spondylosis, and degenerative disc disease of the cervical spine. LUMBAR SPINE: SEGMENTATION: No lumbosacral transitional anatomy. The lowest fully formed intervertebral disc level is labeled L5-S1. ALIGNMENT: Mild levocurvature of the lumbar spine; variable minimal to mild stair step retrolisthesis T11 on T12 through L1 on L2; minimal retrolisthesis L3 on L4 in advance of grade 1 anterolisthesis L4 on L5. VERTEBRAE: Diffuse demineralization of the osseous architecture. No radiographic evidence of acute fracture. Vertebral body heights maintained. Spondylosis. DISCS: Multilevel variable vacuum disc phenomenon loss of intervertebral disc height of the lower thoracic through lumbar spine. SOFT TISSUES: Calcific atherosclerosis of the aorta and branch vasculature. Nonspecific calcification left hemiabdomen. Surgical clips about the lower abdomen to pelvis. IMPRESSION: No radiographic evidence of acute fracture of the thoracic or lumbar spine with constellation of spondylolisthesis, spondylosis, and degenerative disc disease. THIS IS AN ELECTRONICALLY VERIFIED FINAL REPORT 01/12/2024 4:05 PM - Electronically signed by Kirlil Martinez M.D. EDITH: EDITH Report ID: [id number] Reading Location: [place] [address] Social History Type Status Start Date End Date Code Code Syst em Smoking History Never smoker (Never Smoked) 559401399 SNOMED CT Smoking History Unknown if ever smoked [facility] [address] [facility] Sex Female Medications Medication Start Date End Date Route Frequency Dose Code Code System Medication Instructions Home Meds PreserVision Areds Oral Capsule, Liquid Filled 01/02/2020 Unknown ORAL DIRECTED 1 unit(s) 840601 RxNorm TAKE 1 EACH ORAL DIRECTED Verapamil HCl 240MG Oral Tablet, Extended Release 01/02/2020 Unknown ORAL ONCE A DAY 240 MILLIGRAMS 086728 RxNorm TAKE 240 MILLIGRAMS ORAL ONCE A DAY hydroCHLOROthiaz ginny 25MG Oral Tablet 01/02/2020 Unknown ORAL ONCE A DAY 25 MILLIGRAMS 918815 RxNorm TAKE 25 MILLIGRAMS ORAL ONCE A [...] Code System No Known Drug Allergies Active 682087990 SNOMED-CT Plan of Treatment Digital Tony Screen Bilateral (00558) Digital Tony Screen Bilateral (10416) Kidney & Bladder (26086) 05/29/2024 Encounters Encounter Diagnosis Start Date Code Code Sys tem Other intervertebral disc degeneration, thoracic regio n 01/12/2024 SNOMED-CT Personal Care Team Section Performer Name Performer Role Active Date Inactive Musa Kohler PCP - Primary care physician 2021-10-14 Imaging Narrative Notes
== END 2024-09-09 12:00 | disposition home or self-care (01) ==
LOC: CHSLAB 12:07
PROVIDERS: PCP Specialist; Visit Provider Specialist
DX: C44.519 Basal cell carcinoma of skin of other part of trunk (principal)
CPT/HCPCS: 88305